=== PATIENT | female | born 1985 | race Caucasian/White ===

== ENCOUNTER 2017-04-09 19:31 | Inpatient (IN) | payer BC ==
[~2017-04-09] VITALS: Ht 175.3 cm; Wt 101.6 kg
[~2017-04-09 19:31] MED LIST: PREN-127 PO
[2017-04-09] MEDS ORDERED: OXYTOCIN 30 UNIT/D5LR 500 ML 500 ML IV PRN (19:34)
[2017-04-09] MEDS ORDERED: FAMOTIDINE(*) 20MG/50ML PREMIX 50 ML IVPB PRN (19:34)
[2017-04-09] MEDS ORDERED: LIDOCAINE 1% LOCAL 300 MG/30ML INJ PRN (19:35)
[2017-04-09] MEDS ORDERED: METOCLOPRAMIDE 10 MG/2 ML SDV IVP PRN (19:35)
[2017-04-09] MEDS ORDERED: FLUSH 10 ML SYR IVP PRN (19:35)
[2017-04-09] MEDS ORDERED: fentaNYL CITR 100 MCG/2 ML AMP IVP PRN ×2 (19:35→22:15)
[2017-04-09] MEDS ORDERED: LIDOCAINE/SOD BICARB 8.4% SYR SC PRN (19:35)
[2017-04-09] MEDS ORDERED: TERBUTALINE SULF 1 MG/ML VIAL SUBQ PRN (19:35)
[2017-04-09] MEDS ORDERED: ONDANSETRON 4 MG/2 ML VIAL IVP PRN (19:35)
[2017-04-09 20:00] VITALS: BP 145/94; Ht 175.3 cm; Wt 101.6 kg
[2017-04-09 20:23] LABS: PLATELET COUNT, AUTOMATED 142 K/uL (150-450)
[2017-04-09] MEDS: LR(*) 1000 ML BAG 1,000 ML IV PRN ×2 (20:35→21:33)
--- NOTE | 2017-04-09 21:08 | History & Physical ---
History of Present Illness Age of Patient: 31 : 1 Para or TPAL: 0 EDC per LMP: Apr 14, 2017 EDC per U/S: Apr 15, 2017 Estimated Gestational Age: 39.2 Chief Complaint Elevated blood pressure. History of Present Illness Pt is a 31 y/o @ 39-2/7 weeks gestation who presents to L&D after being sent from clinic with elevated blood pressures. Pt denies any headaches, blurry vision, or RUQ pain. Reports irregular contractions. Good movement. No vaginal bleeding. History Patient's Blood Type: A Negative Rubella Status: Immune Group B Strep Screen: Negative Obstetrical History: Nulligravid Past Medical History: Allergy to latex. 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 Denies any use of ETOH/Tobacco/Recreational drugs Med Rec Home Meds Reported Medications Vits W-Ca,Fe,Fa(<1MG) ( VITAMINS) 1 Each Tablet, 1 EACH PO DAILY, TAB 03/25/17 Review of Systems All Systems Reviewed/Normal: Yes, Except as Noted Constitutional: No Fever, No Weight Loss, No Weight Gain, No Chills, No Night Sweats, No Other Neurological: No Syncope, No Confusion, No Weakness, No Dizziness, No Slurred Speech, No Other Eyes: No Vision Change, No Loss of Vision, No Photophobia, No Other ENT: No Hearing Loss, No Sinus Congestion, No Sore Throat, No Ear Ache, No Tinnitus, No Other Cardiovascular: No Chest Pain, No Palpitations, No Orthostatic Hypotension, No Other Respiratory: No Shortness of Breath, No Cough, No Wheezing, No Other Gastrointestinal: No Nausea, No Vomiting, No Diarrhea, No Dysphagia, No Constipation, No Early Satiety, No Hematemesis, No Hematochezia, No Melena, No Abdominal Pain, No Other Genitourinary: No Dysuria, No Hematuria, No Urinary Incontinence, No Other Musculoskeletal: No Pain, No Sprain, No Strain, No Impaired Mobility, No Other Psychiatric: No Depression, No Anxiety, No Other Exam General Exam General Apperance: Alert/Awake/No Acute Distress Neuro: No Gross deficits Eyes: Normal Extraocular Movement & Vison, PERRLA ENT: Normal Cardiovascular: Regular Rate and Rhythm Respiratory: No Respiratory Distress, Clear to Auscultation Abdomen: Soft, Non-Tender, Non-Distended : Normal Musculoskeletal: No Weakness/Pain Extremities: No Cyanosis,Clubbing or Edema Integumentary: Skin Intact without Lesions or Rash Psychological: Alert & Oriented X3, Appropriate Mood & Affect Vaginal Discharge/Fluid?: Clear Fluid Cervical Dialation: 6 Cervical Effacement (%): 90 Cervical Consistency: Soft Cervical Position: Anterior Station: 0 Presentation: Vertex Uterine Contractions(Q min): 2 Uterine Contraction Strength: Moderate Fetus Feeling Movement?: Yes Estimated Weight(grams): 3800 Heart Tones: 135 Heart Tone Variabilty: Moderate FHT Accelerations: 15X15 FHT Decelerations: None FHT Category: I Medical Decision Making Data Points Result Diagram: 04/09/17201304/09/172013 Pre-Admit Course Medical Record Review: Yes VTE Prophylasis: Adult Deep Vein Thrombosis/Pulmonary: No Assessment and Plan 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 Liver enzymes elevated and Platelets in the 140's. No diagnostic for HELLP syndrome but getting close. Will plan to perform amniotomy and deliver tonight. ZANE CONSTANTINO DO Apr 09, 2017 21:08
[2017-04-09] MEDS ORDERED: BUPIVACAINE 0.25% MPF INJ EPI PRN (22:50)
[2017-04-09] MEDS ORDERED: LIDOCAINE/PF 2% 200MG/10ML AMP 200 MG/10 ML AMPUL EPI PRN (22:50)
[2017-04-09] MEDS ORDERED: fentaNYL CITR 100 MCG/2 ML AMP IT PRN (22:50)
[2017-04-09] MEDS ORDERED: FENTANYL/ROPIVACAINE 100 ML BAG EPI PRN (22:50)
[2017-04-09] MEDS ORDERED: BUPIVACAINE 0.5% INJ 30ML VIAL EPI PRN (22:50)
[2017-04-09] MEDS ORDERED: LIDO/EPI 2% MPF 1:200,000 20ML EPI PRN (22:50)
[2017-04-09] MEDS ORDERED: EPIDURAL KEYS XX PRN (23:00)
[2017-04-09] MEDS ORDERED: ePHEDrine 25 MG/5 ML DISP.SYR IVP ONE (23:04)
--- NOTE | 2017-04-10 01:06 | Anesthesia OB Pre-Anes Eval ---
History of Present Illness Anesthesia Start Date: Apr 09, 2017 Anesthesia Start Time: 23:20 OB Anesthesia Diagnosis: induction - medical Current Complication: gestational hypertention Complications: None known EDC: Apr 14, 2017 : 1 Para: 0 Vital Signs: Vital Signs Date Time Temp Pulse Resp B/P (MAP) Pulse Ox O2 Delivery O2 Flow Rate FiO2 04/09/17 20:00 145/94 (111) 95 Room Air Pain Ratin Heart Tones: WNL Result Diagram: 04/09/17201304/09/172013 Height (Inches): 69.00 Weight (Pounds): 224 BMI Calculated: 33.08 Past Medical History Medical History: no pertinent history Surgical History: no surgical history Attended [facility]birth Classes?: [facility], [facility], Attended [employer] Lecture Hx Anesthesia Reactions: No Hx Family Anesthesia Reaction: No Current Medications: pain medication (Fentenyl IV at 2100) Home Meds Reported Medications Vits W-Ca,Fe,Fa(<1MG) ( VITAMINS) 1 Each Tablet, 1 EACH PO DAILY, TAB 03/25/17 Allergies: Coded Allergies: latex (Verified Allergy, Mild, RASH, 03/25/17) Anesthesia OB ROS Neurological: No migraines/headaches, No seizures, No neuropathy ENT: Denies Tooth caps, Denies Loose teeth, Denies Chipped teeth, Denies Dentures, Denies Bridges, Denies Retainers, Denies Veneers, Denies Implants, Denies Tongue ring Pulmonary: No asthma, smoker (pks/day/yrs) (2-5cigs/mo pre ) Airway Class: ll Last Solids Date: Apr 09, 2017 Last Solids Time: 17:30 ROS: No Herpes, No STD(s), No Liver Disease, No Renal Disease Endocrine ROS: No diabetes, No gestational diabetes, No thyroid disorder Musculoskeletal ROS: No low back pain, No low back injury, No scoliosis ASA Classification: 2, E Assessment and Plan Anesthesia Plan: CSE Assessment Past Medical, Surgical, Family and Obstetric Histories reviewed. Please see ACOG chart. Upon entering pt's room, learned that she was 10 cms dilated. RN going to have pt. start pushing. Returned to room per OB physician's request. Pt. does not want to push due to increase in pain. Offered pt. CSE and she is very agreeable. Very thoroughly explained to pt. that is mandatory that she is able to maintain position for CSE. Reviewed epidural anesthesia risks, complications and benefits explained to patient's satisfaction for labor and vaginal delivery and/or section. General anesthesia risks and benefits explained to patient's satisfaction. Questions invited, none asked. ESPERANZA SUAREZ CRNA Apr 10, 2017 01:06
--- NOTE | 2017-04-10 01:13 | Procedure Note ---
Anesthetic Placement Note Anesthesia Plan: CSE Permit for Anesthesia Signed: Yes Anesthesia Technique: Patient Sitting Anesthesia Prep: Chlorhexidine Interspace: L 3-4 Local Anesthetic: 1% Lidocaine, 25 Gauge Needle Amount Local - cc's: 2 Anesthesia Needle: 17g Touhy/Schliff Anesthesia Attempts: 1 Loss of Resistance: Air Depth of LOS (cm): 6 Epidural Needle Placement: No CSF, No Blood, No Parasthesia Intrathecal Needle: 27 Gauge Pencan Cerebral Spinal Fluid: Yes, Clear Catheter Insertion (cm): 8 Catheter Type: [place] - Spring Wound Epidural Dressing: Tegaderm, Tape, Adhesive [place] Anesthesia Tray: Lot Number ([id number]), Expiration Date (2017-12-15), Reference Number ([id number]) Anesthesia Medications: Intrathecal Dose: mcg Fentanyl (15), mg Marcaine MPF (1.75), Time (2333) Epidural Test Dose: 1.5 Lido/Epi (1:200,000), Dose - mL (3), Time (2340), Negative Epidural Loading Dose: 0.2% Ropivicaine, With Fentanyl 2mcg/ml, Dose - ml (4 ml ), Time (2342) Epidural Infusion: 0.2% Ropivicaine, With Fentanyl 2mcg/ml, Start Time: (0100) Epidural Pump Setting: Bolus Dose - mL (5), Lockout - Minutes (20), Maintenance Rate - mL/hr (6), Maximum per Hour - mL (21) Complications: None Comment: Vital signs stable. Patient comfortable and condition stable. ESPERANZA SUAREZ CRNA Apr 10, 2017 01:13
--- NOTE | 2017-04-10 01:15 | Anesthesia Progress Note ---
Progress/Maintenance Anesthesia Note Date: Apr 10, 2017 Anesthesia Note Time: 01:15 Pain Intensity: 1 Pump: On Pump Rate (ML/HR): 6 Sensory Level: T-12 Motor Level: Bending Knees-Bilateral Dilatation: 10 Position: Left, Tilt Assessment and Plan Assessment Epidural pump started. Pt. states she has slept a small amount. Denies feeling any contractions. Instructed to inform RN or FAMILY LAW LEGAL ASSISTANT when she does start to feel contractions or pressure. ESPERANZA SUAREZ CRNA Apr 10, 2017 01:15
--- NOTE | 2017-04-10 06:25 | Anesthesia Progress Note ---
Progress/Maintenance Anesthesia Note Date: Apr 10, 2017 Anesthesia Note Time: 01:55 Pain Intensity: 1 Pump: On Pump Rate (ML/HR): 6 Sensory Level: T-12 Motor Level: Bending Knees-Bilateral Dilatation: 10 Position: Tilt Drug Bolus: 0.2% Ropivicaine, Fentanyl 2mcg/ml Assessment and Plan Assessment Pt. requesting more medication as she is feeling contractions becoming stronger. No plans or desire to push yet. Manual bolus per epidural pump given. ESPERANZA SUAREZ CRNA Apr 10, 2017 06:25
--- NOTE | 2017-04-10 06:27 | OB Delivery Note ---
Delivery Note Vaginal Delivery Type: Vacuum Delivery Date: Apr 10, 2017 Delivery Time: 05:26 Estimated Gestational Age(wks): 39.3 Indication (if vag op): Maternal Exhaustion: Counseled on Vacuum vs Forceps. Pt desires Vacuum delivery. Understands risk include maternal lacerations which could result in hemorrhage. bruising or possible abrasions at site of vacuum placement. Hematoma, bruising which both increase risk of jaundice in the . Pt voiced understanding and desired to proceed with Operative vaginal delivery Bladder drained with straight catheter. Cervix completely dilated. Vacuum placed 2 cm interior to posterior fontanelle. With onset of contraction suction applied making sure clear of all maternal tissues. Suction to the green zone on the Kiwi vacuum approximately 500 mm Hg. Traction applied with maternal effort. Significant change in station with first pull until vertex had delivered. Once head was delivered and surgeon had control of the infants chin the suction was completely removed. Length of Labor Stage I (hrs): 7 Length of Labor Stage II (hrs): 4 Labor Stage III (minutes): 10 Delivery Anesthesia: Epidural Sex: Female Weight (gms): 3362 (7#6.6 oz) [place] Apgars: 1 Minute (8), 5 Minute (9) Repair Needed: Vaginal (Right side wall), Labial (left) Estimated Blood Loss: 500 Hardware Designer in Attendence: ZANE Leung DO Apr 10, 2017 06:27
--- NOTE | 2017-04-10 06:28 | Anesthesia Progress Note ---
Progress/Maintenance Anesthesia Note Date: Apr 10, 2017 Anesthesia Note Time: 05:45 Pain Intensity: 0 Pump: Off Motor Level: Bending Knees-Bilateral Position: Semi-Fowlers Assessment and Plan Anesthesia Plan: CSE Assessment No further medication was given per epidural. Vacuum assistance given per physician. Pt. able to move legs well. Patient instructed the first ambulation is to be with help of nursing staff. Instructed to preform deep knee bends at bedside before walking. Anesthesia Stop Day: Apr 10, 2017 Anesthesia Stop Time: 06:00 Epidural Catheter Removal: Removed Catheter Intact, Yes, Removed by: (Annmarie Ortiz CRNA) Removal Date: Apr 10, 2017 Removal Time: 06:00 ESPERANZA ORTIZ CRNA Apr 10, 2017 06:28
[2017-04-10] MEDS ORDERED: LANOLIN OINT 7 GM TUBE TP PRN (06:30)
[2017-04-10] MEDS ORDERED: HYDROCORTISONE 2.5% CR 30GM TB PR PRN (06:30)
[2017-04-10] MEDS ORDERED: DIPHTH/TETANUS/ACEL. PERTUSSIS IM ONE (06:30)
[2017-04-10] MEDS ORDERED: MAGNESIUM HYDROXIDE* 30ML UDCP PO PRN (06:30)
[2017-04-10] MEDS ORDERED: MEASLES,MUMP,RUBELLA VAC 0.5ML SC ONE (06:30)
[2017-04-10] MEDS ORDERED: INFLUENZA VIRUS VAC 0.5 ML SYR IM ONLY ONE (06:30)
[2017-04-10] MEDS ORDERED: ACETAMINOPHEN 325 MG TAB PO PRN (06:30)
[2017-04-10] MEDS ORDERED: GLYCERIN/WITCH HAZEL LEAF 1 PK TOP PRN (06:30)
[2017-04-10] MEDS ORDERED: BENZOCAINE 20% 60 ML BTL TP PRN (06:30)
[2017-04-10] MEDS ORDERED: CALC-521 PO (07:55)
[2017-04-10 08:30] VITALS: BP 125/73
[2017-04-10] MEDS: DOCUSATE CALCIUM 240 MG CAP PO SCH ×2 (08:57→20:59)
[2017-04-10] MEDS ORDERED: IBUPROFEN 800 MG TAB PO SCH (09:00)
[2017-04-10 12:15] VITALS: BP 135/76
[2017-04-10] MEDS: IBUPROFEN 800 MG TAB PO SCH ×2 (14:45→23:06)
--- NOTE | 2017-04-10 14:46 | DELIVERY NOTE ---
DELIVERY DATE: April 10, 2017 SURGEON: Pito Garcia DO ANESTHESIA: Epidural. PREDELIVERY DIAGNOSES 1. A 31-year-old 1, para zero, at 39-3/7 weeks' gestation. 2. Induction of labor. 3. Gestational hypertension. POSTDELIVERY DIAGNOSES 1. A 31-year-old 1, para zero, at 39-3/7 weeks' gestation. 2. Induction of labor. 3. Gestational hypertension. 4. Delivered. PROCEDURES PERFORMED 1. Vacuum-assisted vaginal delivery. 2. Repair of right sidewall laceration and left labial laceration. FINDINGS Live-born female at 0526 of April 102017, weighing 3362 g, 7 pounds 6.6 ounces, three-vessel cord, intact placenta, over a right sidewall laceration. ESTIMATED BLOOD LOSS 500 mL PATHOLOGY None. COMPLICATIONS None known. CONDITION Stable times two. Mother and infant to remain in the LDRP. COUNTS Correct times two for all needles, laps, sponges, and instruments. INDICATIONS AND CONSENT The patient is a 31-year-old 1, para zero, at 39-3/7 weeks' gestation who has been having elevated blood pressure over the last week. She presented for a blood pressure check in the office and was noted to have multiple blood pressures greater than 160. The patient was counseled for induction of labor secondary to gestational hypertension. The patient did undergo laboratory testing which did show labs consistent with early onset HELLP syndrome. The patient's initial cervical exam was 4 to 5 cm. Oxytocin was infused for induction. The patient quickly made it to 6 cm, underwent amniotomy, and again continued to progress to complete. After pushing for approximately 5 minutes without an epidural, the patient desired an epidural and was given one accordingly. With the epidural in place, the patient did a Teran catheter placed, and she was allowed to labor down. After labor down process, the patient began to feel increased pressure, and the nursing staff pushed with the patient for approximately two hours, at which time the delivery team was called and assembled. DELIVERY SUMMARY After pushing with the patient for two hours, the patient was reporting getting exhausted. Options were discussed about operative vaginal delivery. The patient was counseled on vacuum versus forceps. The patient desired to proceed with vacuum-assisted vaginal delivery. The patient understands the risks to include worsening maternal lacerations, bruising to infant, possible abrasions to the infant's head, and cephalohematoma. If any of these were to occur, it would increase the baby's risk of jaundice. The patient understands and desires to proceed. The patient was placed in the dorsal lithotomy position, prepped and draped in the usual sterile manner. A sterile catheter was placed in the bladder, and the bladder was drained. The cervix was ensured to be fully dilated. The patient was noted to be +3. The Kiwi hard cup vacuum was placed 2 cm anterior to the posterior fontanelle. With onset of contraction, the pressure on the vacuum was applied to the green zone on the Kiwi vacuum, which was approximately 550 mmHg. With suction applied, gentle traction was applied to the vacuum. With maternal effort, the 's head had significant change in station with the first and only pull. Once the infant's chin was delivered, the suction was removed, and the vacuum was placed on the table. With control of the 's head, there was gentle downward traction that was applied to the head to help deliver the anterior shoulder, gentle upward motion to help deliver the posterior shoulder, with the remaining infant's body delivered spontaneously. At this point, a live-born, vigorous female was placed on the maternal abdomen where she did have her mouth and nose bulb suctioned. She was cleaned and dried by the nursing staff. After approximately two and a half minutes post delivery, the cord was clamped times two and cut by the 's father with the cord clamped. The infant had blankets changed and remained on the maternal abdomen. Next, cord blood gases were obtained, and the placenta delivered spontaneously with gentle cord traction. Oxytocin was infused to help with uterine tone. The uterus was massaged, getting firm. Next, on inspection of the perineum, vagina, cervix, and labia, it was noted that there was a right vaginal sidewall laceration. This was repaired with a 3- 0 Vicryl in a running manner. There was also noted to be a left labia laceration. This was repaired with a 4-0 Vicryl in a [id number] manner. With the lacerations repaired, the patient was hemostatic. At this point, the patient was cleaned, and the bed was reassembled. The mother and were allowed to continue to espana. [facility]ITAL[facility]
[2017-04-10] MEDS: APAP/HYDROCODONE 325/5 TAB PO PRN ×2 (18:45→23:07)
--- NOTE | 2017-04-10 19:14 | Anesthesia Post Eval Note ---
Anesthesia Post Eval Note Vital Signs Date Time Temp Pulse Resp B/P (MAP) Pulse Ox O2 Delivery O2 Flow Rate FiO2 04/10/17 12:15 98.4 78 18 135/76 (95) 96 Room Air Pt able to participate in Eval: Yes Cardiovascular Status: Satisfactory Respiratory Status: Satisfactory Pain Managment: Satisfactory PO Nausea/Vomiting: Satisfactory Temperature Management: Satisfactory Mental Status: Satisfactory, Alert, Oriented X3 Post-Op Hydration Status: Satisfactory, Tolerating PO Well, Voiding w/o Difficulty Anesthesia Type: CSE Anesthesia Tolerance: Tolerated procedure well without apparent anesthetic complications. LP site clear, no redness or edema. Denies headache or any residual paresthesia. Vital Signs Stable, Patient comfortable and condition stable. ESPERANZA SUAREZ CRNA Apr 10, 2017 19:14
[2017-04-10 19:50] VITALS: BP 127/70
[2017-04-10 23:08] VITALS: BP 144/86
[2017-04-11 02:20] VITALS: BP 125/65
[2017-04-11] MEDS: IBUPROFEN 800 MG TAB PO SCH ×2 (07:50→15:01)
--- NOTE | 2017-04-11 09:18 | OB/GYN Progress Note ---
OB Subjective Progress Notes Subjective Doing good this morning. Tolerating regular diet. Ambulatory. . Lochia appropriate. GI: NEG Nausea, NEG Vomiting, NEG Flatus, NEG Bowel Movement : Voiding Well, Vaginal Bleeding, Moderate Pain: Mild Neurological: No Headache, No Other Eyes: No Visual Disturbances OB Objective Physical Exam Vital Signs Date Time Temp Pulse Resp B/P (MAP) Pulse Ox O2 Delivery O2 Flow Rate FiO2 04/11/17 02:20 97.7 85 18 125/65 (85) Room Air 04/10/17 12:15 96 General Appearance: Alert/Awake/No Acute Distress Neurological: No Gross deficits Eyes: Normal Extraocular Movement & Vison, PERRLA Respiratory: No Respiratory Distress, Clear to Auscultation Abdomen: Soft, Non-Tender, Non-Distended, Fundus Firm Extremities: No Cyanosis,Clubbing or Edema Integumentary: Skin Intact without Lesions or Rash Psychological: Alert & Oriented X3, Appropriate Mood & Affect Result Diagram: 04/11/1761404/11/1715 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 Pt doing great. Bleeding appropriate. If baby is discharged will plan d/c home. ZANE CONSTANTINO DO Apr 11, 2017 09:18
[2017-04-11] MEDS ORDERED: IBUP800T37 PO (09:19)
[2017-04-11] MEDS ORDERED: LOR5/325 PO (09:19)
--- NOTE | 2017-04-11 09:23 | OB/GYN Discharge Summary ---
Discharge Summary Reason for Hosp/Final Diag: (1) 39 weeks gestation of (2) Gestational [-induced] hypertension without significant proteinuria , third trimester Hospital Course & Plan: Pt presented for IOL secondary to elevated BP. Pt blood work was consistent with HELLP syndrome. Pt didn't require magnesium for severe features. Pt underwent VAVD with out any difficulty ( see delivery note for details). Pt remained in the hospital for 2 days. [place] Vital Signs Vital Signs Date Time Temp Pulse Resp B/P (MAP) Pulse Ox O2 Delivery O2 Flow Rate FiO2 04/11/17 02:20 97.7 85 18 125/65 (85) Room Air 04/10/17 12:15 96 Weight (Pounds): 224 Result Diagram: 04/11/1761404/11/17614 Condition: Improved Home Meds Active Scripts Ibuprofen (IBUPROFEN) 800 Mg Tablet, 800 MG PO Q8H@0700,1500,2300, #30 TAB 0 Refills Prov:ZANE CONSTANTINO DO 04/11/17 Hydrocodone Bit/Acetaminophen (HYDROCODON-ACETAMINOPHEN 5-325) 1 Each Tablet, 1- 2 EACH PO Q4H Y for PAIN, #30 TAB 0 Refills Prov:ZANE CONSTANTINO DO 04/11/17 Reported Medications Calcium Carbonate (TUMS) 300 Mg Tab.chew, 300 MG PO, TAB.CHEW 04/10/17 Vits W-Ca,Fe,Fa(<1MG) ( VITAMINS) 1 Each Tablet, 1 EACH PO DAILY, TAB 03/25/17 [facility] [phone], Dr. Constantino [phone] Follow up in: 6 wks PP or PO Discharge Diet: As Tolerates Discharge Activity: As Tolerates, Pelvic Rest ZANE CONSTANTINO DO Apr 11, 2017 09:23
[2017-04-11] MEDS: DOCUSATE CALCIUM 240 MG CAP PO SCH (09:37)
[2017-04-11 10:00] VITALS: BP 128/77
[2017-04-11 15:00] VITALS: BP 131/66
== END 2017-04-11 19:45 | disposition home or self-care (01) | DRG 775 ==
LOC: OB 19:31 → UNDOADMIN 19:31 → UNDODISIN 04-11 19:45
PROVIDERS: ADMIT Student in an Organized Health Care Education/Training Program; ATTEND Student in an Organized Health Care Education/Training Program
PROC: 3E033VJ Introduction of Other Hormone into Peripheral Vein, Percutaneous Approach (ICD-10-PCS; 2017-04-09)
PROC: 10D07Z6 Extraction of Products of Conception, Vacuum, Via Natural or Artificial Opening (ICD-10-PCS; principal; 2017-04-10)
PROC: 0KQM0ZZ Repair Perineum Muscle, Open Approach (ICD-10-PCS; 2017-04-10)
PROC: 10907ZC Drainage of Amniotic Fluid, Therapeutic from Products of Conception, Via Natural or Artificial Opening (ICD-10-PCS; 2017-04-10)
PROC: 3E0334Z Introduction of Serum, Toxoid and Vaccine into Peripheral Vein, Percutaneous Approach (ICD-10-PCS; 2017-04-10)
DX: O13.4 Gestational [pregnancy-induced] hypertension without significant proteinuria, complicating childbirth (principal); O36.0130 Maternal care for anti-D [Rh] antibodies, third trimester, not applicable or unspecified; O14.24 HELLP syndrome, complicating childbirth; O71.4 Obstetric high vaginal laceration alone; Z37.0 Single live birth; Z3A.39 39 weeks gestation of pregnancy
CPT/HCPCS: 36415; 82040; 82247; 82310; 82374; 82435; 82565; 82570; 82947; 84075; 84132; 84155; 84156; 84295; 84450; 84460; 84520; 85025; 85027; 85461; 86850; 86900; 86901; J2590; J2791; J3010; J7120; S0020